=== PATIENT | female | born 1965 | race Caucasian/White ===

== ENCOUNTER 2017-08-27 13:37 | Emergency (ER) | payer OTHER ==
[~2017-08-27] VITALS: Ht 177.8 cm; Wt 156.5 kg
[~2017-08-27 13:37] MED LIST: A STATIN PO; ACCU-CHEK1 EAC1 MISC; ALDACTONE25 MG PO; ALLOPURINOL100 MG PO; ASPIRIN325 MG PO; B-12500 MCG PO; BACTRIM DS TAB1 EACH PO; CALCI-CHEW500 MG PO; CIPROFLOXA400 MG/40 IV; CIPROFLOXACIN500 MG PO; CLINDAMYCIN HC150 MG PO; COLCRYS0.6 MG PO; DAPTOMYCIN500 MG IV; DOCUSATE SODIU100 MG PO; DRISDOL50000 UNIT PO; DULCOLAX5 MG PO; EPIPEN 2-P0.3 MG/0.3 IM; FERRLECIT62.5 MG/1 IV; FERROUS SULFAT325 MG PO; GLIPIZIDE XL10 MG PO; GLUCOSE TEST S1 EACH MISC; IRON IV; LIPITOR10 MG PO; MEROPENEM1 GM IV; METFORMIN HCL500 MG PO; MULTI VITAMIN1 EACH PO; MULTIVITAMINS1 EAC7 PO; NEURONTIN100 MG PO; NORCO 5-325 TA1 EACH PO; PHENTERMINE HCL30 MG PO; PRENATAL 19 CH1 EAC1 PO; REQUIP0.5 MG PO; ROPINIROLE HCL5 MG PO; SENNA8.6 MG PO; SPIRONOLACTONE50 MG; SUMATRIPTAN SU100 MG PO; SYNTHROID125 MCG PO; TYLENOL WITH C1 EACH PO; VITAMIN C500 M1 PO; VITAMIN D250000 UNIT PO; VITAMIN D32000 UNI1 PO; ZOLOFT50 MG PO; [UNRECOGNIZED DRUG - OTHER]
[2017-08-27] MEDS ORDERED: DOXYCYCLINE HY100 MG PO (14:41)
== END 2017-08-27 15:00 | disposition home or self-care (01) ==
LOC: ED 13:37
DX: T80.212A Local infection due to central venous catheter, initial encounter (principal); I10 Essential (primary) hypertension; E03.9 Hypothyroidism, unspecified; Z86.73 Personal history of transient ischemic attack (TIA), and cerebral infarction without residual deficits; Z86.14 Personal history of Methicillin resistant Staphylococcus aureus infection; Z90.710 Acquired absence of both cervix and uterus; Z91.040 Latex allergy status; Z88.0 Allergy status to penicillin; Z88.8 Allergy status to other drugs, medicaments and biological substances; Z88.5 Allergy status to narcotic agent; Z88.1 Allergy status to other antibiotic agents; Z79.82 Long term (current) use of aspirin; Z79.899 Other long term (current) drug therapy
CPT/HCPCS: 99283

== ENCOUNTER 2020-12-06 13:56 | Emergency (ER) | payer BC ==
[~2020-12-06] VITALS: Ht 177.8 cm; Wt 158.0 kg
[~2020-12-06 13:56] MED LIST changes: +DOXYCYCLINE HY100 MG PO
--- OUTSIDE RECORDS SUMMARY | 2020-12-06 14:00 | XMS ---
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 Mikala has no Care Guidelines for this patient. Timothy VISIT COUNT (12 MO.) 1 THOMAS Bazan TOTAL 1 NOTE: Visits indicate total known visits. ED/UCC VISIT TRACKING (12 MO.) 12/06/2020 13:57 THOMAS Singh [place] TYPE: Emergency COMPLAINT: - POSSIBLE ALLERGIC REACTION INPATIENT VISIT TRACKING (12 MO.) No inpatient visits to display in this time frame [email or web address]
[2020-12-06] MEDS ORDERED: METOPROLOL SUCC50 MG PO (14:18)
[2020-12-06] MEDS ORDERED: CYCLOBENZAPRINE10 MG PO (14:20)
[2020-12-06] MEDS ORDERED: LIDOCAINE1 EACH TD (14:20)
--- NOTE | 2020-12-06 17:38 | EKG ---
[facility] [address] [facility] [place] [address] Signed Normal sinus rhythm Normal ECG When compared with ECG of 14-JAN-2017 07:21, Nonspecific T wave abnormality no longer evident in Anterior leads Confirmed by AMINATA ALMAGUER MD ([id number]) on 12/06/2020 5:38:24 PM Electronically Signed By: AMINATA ALMAGUER MD 12/06/20 1738 PATIENT NAME: ORIANA COLORADO Electrocardiogram DATE OF : 61 PHYSICIAN: AMINATA ALMAGUER MD REPORT #: [id number] REPORT IS CONFIDENTIAL AND NOT TO BE RELEASED WITHOUT AUTHORIZATION
== END 2020-12-06 19:20 | disposition home or self-care (01) ==
LOC: ED 13:56
DX: T80.62XA Other serum reaction due to vaccination, initial encounter (principal); R00.2 Palpitations; T50.Z95A Adverse effect of other vaccines and biological substances, initial encounter; I10 Essential (primary) hypertension; E03.9 Hypothyroidism, unspecified; Z86.73 Personal history of transient ischemic attack (TIA), and cerebral infarction without residual deficits; D64.9 Anemia, unspecified; E11.9 Type 2 diabetes mellitus without complications; Z91.040 Latex allergy status; Z91.048 Other nonmedicinal substance allergy status; Z88.0 Allergy status to penicillin; Z88.1 Allergy status to other antibiotic agents; Z88.5 Allergy status to narcotic agent; Z88.2 Allergy status to sulfonamides; Z79.899 Other long term (current) drug therapy
CPT/HCPCS: 0297T; 0298T; 80048; 83735; 84484; 85025; 93005; 93010; 96374; 96375; 99285-25; J1100; J1200; J7030

== ENCOUNTER 2021-04-18 08:00 | Day surgery (SDC) | payer BC ==
[~2021-04-18] VITALS: Ht 177.8 cm; Wt 158.0 kg
[~2021-04-18 08:00] MED LIST changes: +CYCLOBENZAPRINE10 MG PO; +LIDOCAINE1 EACH TD; +METOPROLOL SUCC50 MG PO
--- NOTE | 2021-04-18 08:40 | NUR ---
PATIENT REPORTS BEING ALLERGIC TO SURGICAL WIPES AND WAS INSTRUCTED DURING PRE-ADMISSION TO SHOWER THOROUGHLY AND GET DRESSED IMMEDIATELY AFTER INSTEAD. PATIENT ALLOWED TO SKIP WIPES DUE TO ALLERGY.
--- NOTE | 2021-04-18 12:15 | NUR ---
04/18/21 1215 Prema Ledesma 1206: PT ARRIVES TO PACU FOR RECOVERY. REACTIVE TO VERBAL STIMULI. VSS, RESP EVEN AND UNLABORED. O2 SAT STABLE >98% ON 6L VIA FACEMASK. PT RESTLESS IN BED. BED LOWERED TO LOWEST POSITION. THIS RN AT THE BEDSIDE. DRESSINGS C/D/I. 1214: PT PULLING AT FACEMASK, REMOVED AND OXYGEN TURNED OFF. TRIALLED ON ROOM AIR. SATS REMAIN >95% AT THIS TIME
[2021-04-18] MEDS ORDERED: IBUPROFEN600 MG PO (12:36)
[2021-04-18] MEDS ORDERED: ACETAMINOPHEN500 MG PO (12:36)
--- NOTE | 2021-04-18 13:16 | NUR ---
PATIENT RETURNED TO DAY SURGERY FROM PACU SITTING UPRIGHT IN THE BED. REPORT RECIEVED FROM FEDERICO OTERO. PATIENT REQUESTS DESIRE TO HAVE BED RAILS DOWN AND PROMISES NOT TO GET UP ALONE. KEEPING BED RAILS UP WHILE PATIENT ORIENTS TO UNIT AND BECOMES MORE CLEAR. PATIENT REPORTS PAIN 6/10, IS LAUGHING AND TALIKING ABOUT TELEVISION SHOW. WILL CONTINUE TO MONITOR. AGREES TO HAVING ICE WATER AND APPLESAUCE. DENIES NAUSEA AT THIS TIME. CALL LIGHT WITHIN REACH.
--- NOTE | 2021-04-18 14:12 | NUR ---
CONTACTED EARLINE FROM CANCER CLINIC TO PROVIDE PATIENT WITH [facility] FOR BREAST SUPPORT. PATIENT VERBALIZED DOES NOT HAVE A GOOD SPORTS BRA THAT IS COMFORTABLE TO WEAR AT HOME. EARLINE AGREED TO FIT PATIENT FOR ONE. PATIENT PAIN VERBALIZED SHARP AND RADIATING TO INNER MEDIAL LEFT BREAST. ADMINISTERED TYLENOL PO PER MAR. THEN CONTACTED DR. NIEVES FOR A STRONGER PAIN MEDICATION. DR. NIEVES TO PATIENT ROOM WITH A SCRIPT OF DILAUDID PO. PATIENT VERBALIZED WOULD NOT BE ALLERGIC IF SHE USED IT IN THE SHORT TERM.
--- NOTE | 2021-04-18 15:39 | NUR ---
DISCUSSED DISCAHRGE INSTRUCTIONS WITH PATIENT, PATIENT, , AND DAUGHTER ALL VERBALIZED UNDERSTANDING. PATIENT UP TO RESTROOM AND VOIDS WITHOUT DIFFICULTY. IV REMOVED AND WITHIN NORMAL LIMITS. PATIENT TAKEN OUT TO THE FRONT ENTRANCE IN A WHEELCHAIR. REPORTS PAIN 5-6/10 BUT REPORTS THAT BEING A TOLERABLE LEVEL FOR HER AT THIS TIME. PRESCRIPTIONS GIVEN WITH DISCHARGE INSTRUCTIONS. PATIENT DENIED NAUSEA OTHER THAN WHEN PAINFUL, DENIED INTERVENTIONS FOR NAUSEA. PATIENT SENT HOME WITH ICE PACK AND EMESIS BAGS.
--- NOTE | 2021-04-20 10:51 | OR ---
[facility] [address] [place], [place] [address] Signed DATE OF OPERATION: 04/18/2021 SURGEON: Bob Nieves MD PREOPERATIVE DIAGNOSES: 1. Left infiltrating ductal breast carcinoma (central superior breast). 2. Morbid obesity. POSTOPERATIVE DIAGNOSES: 1. Left infiltrating ductal breast carcinoma (central superior breast). 2. Morbid obesity. 3. Negative sentinel lymph node biopsy frozen pathology. PROCEDURES: 1. Injection of methylene blue for sentinel lymph node identification. 2. Left deep axillary sentinel lymph node biopsy (negative). 3. Left partial mastectomy. 4. Oncoplastic closure of breast parenchyma. ANESTHESIA: General LMA; Ilana Castle CRNA. INDICATION: This is a quite morbidly obese white woman at 352 pounds is a patient of Dr. Warner and has been diagnosed with infiltrating ductal breast carcinoma in the superior aspect of the breast in the central area. Diagnostic mammogram and ultimately ultrasound and ultrasound biopsy by Dr. Pérez confirmed this. The lesion is at least 18 mm in size without associated in situ component. She has had no nipple discharge or bone pain. Does have a slightly inverted nipple in the area. She does have family history of breast cancer in her mother and maternal grandmother and 2 maternal great aunts. Her options of management have been reviewed and at this point, she wishes to proceed with partial mastectomy, sentinel lymph node biopsy, possible axillary dissection and postoperative radiation therapy. She understands as does her the risk of bleeding, infection, cosmetic deformity, need for open procedures later, and of course failure to cure the problem despite efforts to do so. She understands and she wished to proceed. FINDINGS: A sentinel lymph node was well identified in the axilla, which was both hot from the radionuclide standpoint and with uptake of methylene blue dye. Frozen pathology showed Electronically Signed By: BOB NIEVES MD 04/20/21 1051 PATIENT NAME: ORIANA COLORADO OPERATIVE REPORT DATE OF : 61 REPORT #: [id number] PHYSICIAN: BOB NIEVES MD PCP: SAGE WARNER MD REPORT IS CONFIDENTIAL AND NOT TO BE RELEASED WITHOUT AUTHORIZATION [facility] [address] [place], [place] [address] Signed the lesion to be free of any metastatic breast cancer. As regards to breast parenchyma, the lesion was bulky or at least reaction to the tumor itself was significant, requiring a rather generous excision, probably the size of a softball at least. The specimen was marked with a short stitch superiorly, long stitch laterally, a double stitch in the inferior margin, and a triple stitch at the base of the parenchyma near the pectoralis fascia. Clinically, negative margin was maintained. The parenchyma of the breast was voluminous, which allowed for oncoplastic closure to include mobilization of the pedicle of breast. Excision of redundant skin was required for an oncoplastic closure as well. She tolerated procedure well and blood loss was less than 20 mL in aggregate. DESCRIPTION OF PROCEDURE: The patient was received from Radiology suite having undergone radionuclide injection for sentinel lymph node identification. She was given a general LMA type anesthetic without complication. Preoperative antibiotic clindamycin had been given. The patient has an extensive allergy profile including essentially all prep solutions. 2-1/2 mL of methylene blue was injected in the subepithelial and subdermal space in the left periareolar area and the breast was prepared with a Betadine solution as was the axilla. Interrogation of the left axilla with the C-Trak probe showed area considered "hot" with a small transverse incision was made there. Electrocautery was used to dissect into the deep axillary fat and with various manipulations, a blue lymph node with the radionuclide uptake was easily identified. It was relatively larger about 1.5 to 2 cm. This was excised without problem. Several clips were applied to the area for future reference as needed. This was sent for frozen pathology. Additional interrogation of the axilla showed no dominant uptake of radionuclide and so the wound was packed with gauze. Attention was turned to the primary tumor. The primary tumor was cephalad to the areolar margin and in the central part of the breast. She has a very large pendulous breast and palpation revealed the area in question to be a bit more bulky than I had anticipated. Nevertheless, a curvilinear incision was made along the areolar margin. Dissection carried through the dermis with electrocautery. Dissection was begun inferiorly showing no sign of tumor infiltration into the nipple areolar complex proper, though she did have a mildly inverted nipple at the outset of the procedure. Dissection was taken deeply and then laterally and medially and ultimately, the flap developed superiorly allowing for very large excision of breast to include the bulky tumor with a clinically negative margin. The breast parenchyma was marked with appropriate sutures as previously noted and drilling made to help orient the specimen in relation to those orienting sutures. This was sent for permanent pathology. Electronically Signed By: BOB NIEVES MD 04/20/21 1051 PATIENT NAME: ORIANA COLORADO OPERATIVE REPORT DATE OF : 61 REPORT #: [id number] PHYSICIAN: BOB NIEVES MD PCP: SAGE WARNER MD REPORT IS CONFIDENTIAL AND NOT TO BE RELEASED WITHOUT AUTHORIZATION [facility] [address] [place], [place] [address] Signed By this point, the frozen pathology of the sentinel lymph node was found to be negative for any sign of metastatic disease. Irrigation was undertaken in the wound with sterile water. Electrocautery was assured with hemostasis. A sizable defect was noted down to the pectoralis fascia. Given her redundant breast tissue from morbid obesity, parenchymal reapproximation and mobilization of breast pedicles was deemed appropriate to fill the void of the excised tissue. This was accomplished by mobilizing the superior and inferior pedicle and joining them at the base of the wound with interrupted 2-0 Vicryl, parenchymal reapproximation was then undertaken sequentially throughout. As expected, a transverse crease was created with this approach allowing for appropriate excision of additional skin superiorly to accommodate the nipple. Reapproximation of the dermis with interrupted 2-0 Vicryl was undertaken and dog-ears laterally were excised flattening out the incision itself. Very good filling of the breast defect was noted, though there was some distortion remaining, but given her morbid obesity, likely would not be particularly problematic going forward. Steri-Strips were applied to this site as was a silver sponge dressing. Attention was turned towards the axilla. There was no evidence of bleeding or other issue. The skin was reapproximated with interrupted 3-0 Vicryl. Steri-Strips were applied and a silver sponge dressing applied there as well. The patient tolerated procedure well. Blood loss was less than 25 mL in aggregate. Sponge, needle, and instrument counts were reported as correct x3. MD SHANE Ruelas/BERLIN /[id number] cc: MD Issa Chavira MD Copies: SAGE WARNER MD Electronically Signed By: BOB NIEVES MD 04/20/21 1051 PATIENT NAME: ORIANA COLORADO OPERATIVE REPORT DATE OF : 61 REPORT #: [id number] PHYSICIAN: BOB NIEVES MD PCP: SAGE WARNER MD REPORT IS CONFIDENTIAL AND NOT TO BE RELEASED WITHOUT AUTHORIZATION [facility] [address] [place] [address] Signed ISSA PÉREZ MD ~ Electronically Signed By: BOB NIEVES MD 04/20/21 1051 PATIENT NAME: ORIANA COLORADO OPERATIVE REPORT DATE OF : 61 REPORT #: [id number] PHYSICIAN: BOB NIEVES MD PCP: SAGE WARNER MD REPORT IS CONFIDENTIAL AND NOT TO BE RELEASED WITHOUT AUTHORIZATION
--- NOTE | 2021-06-07 17:40 | PATH ---
[facility] [address] [facility] [place], [place] [address] Signed THIS IS AN ADDENDUM REPORT SPECIMEN(S): A SENTINEL LYMPH NODE SPECIMEN(S): B CENTRAL LEFT BREAST SPECIMEN(S): C SUPERIOR SKIN FLAP SPECIMEN SOURCE: A. SENTINEL LYMPH NODE B. CENTRAL LEFT BREAST C. SUPERIOR SKIN FLAP CLINICAL HISTORY: Infiltrating ductal carcinoma of left breast FROZEN SECTION DIAGNOSIS: A. [place] lymph node: - No evidence of malignancy in ict sales representative section frozen of lymph node #1. - Lymph node #2 not frozen. Manisha Suero M.D. 04/18/21 11:05 a.m. Frozen section diagnoses called to Dr. Key at 11:05 AM. NAL:cml FINAL PATHOLOGIC DIAGNOSIS: A. [place] lymph node, left axilla, excisional biopsy: - Metastatic ductal carcinoma present in one of two lymph nodes (1/2). - Size of metastatic deposit: 18 mm. - Extranodal extension: Present, 3 mm in greatest dimension. B. Breast, left central, lumpectomy: - Invasive ductal carcinoma, with the following features: - Tumor site: Central. - Tumor size: 26 x 23 x21 mm. - Histologic type: Invasive carcinoma of no special type (ductal). - Histologic grade (Union histologic score): - Glandular (acinar)/tubular differentiation: Score 3. - Nuclear pleomorphism: Score 2. - Mitotic rate: Score 1. - Overall grade: Grade 2 (total score 6 of 9). - Tumor focality: Single focus of invasive carcinoma. - Ductal carcinoma in situ: Not identified. - Margins: Uninvolved by invasive carcinoma (see Comment). - Deep margin: 2 mm. PATIENT NAME: ORIANA COLORADO PATHOLOGY DATE OF : 61 REPORT #: [id number] PHYSICIAN: TING PATHOLOGY PCP: SAGE HILARIO MD REPORT IS CONFIDENTIAL AND NOT TO BE RELEASED WITHOUT AUTHORIZATION [facility] [address] [place], [place] [address] Signed - Anterior and inferior margins: 6 mm. - Superior, medial, lateral margins: Greater than 10 mm. - Regional lymph nodes: Involved by tumor cells (see specimen A). - Number of lymph nodes with macrometastases: 1. - Size of largest metastatic deposit: 18 mm. - Extranodal extension: Present. - Extent of extranodal extension: 3 mm. - Total number of lymph nodes examined: 2. - Number of sentinel nodes examined: 1. - Total number of nodes examined: 2. - Treatment effect in the breast: No known pre-surgical therapy. - Lymphovascular invasion: Present. - Breast biomarker studies: Please refer to previously performed testing ([id number]), interpreted as estrogen receptor positive, progesterone receptor positive, HER2 negative by IHC (1+), and Ki-67 proliferation index of 28%. - Pathologic stage classification (pTNM, AJCC 8th edition): pT2 (sn) pN1a. - See Comment. C. Superior skin flap, excision: - Skin with no histopathologic abnormality. - No evidence of malignancy. COMMENT: Regarding specimen B: Through invasive carcinoma is not present at the deep margin, carcinoma is present in lymphovascular spaces at the deep margin. This is confirmed with immunohistochemical stains (see microscopic section). As part of [facility]' Quality Improvement Program, this case was reviewed by another member of our pathology staff. The results were called to the office of Dr. Key on 04/23/21. NAL:LEONEL:cml:C1NR MICROSCOPIC EXAMINATION: Histologic sections of all submitted blocks are examined by light microscopy. These findings, together with the gross examination, support the pathologic diagnosis. Regarding specimen A: Immunohistochemical stains (with appropriately staining controls) for graham cytokeratin were performed on each ict sales representative section of the sentinel lymph nodes and confirm the PATIENT NAME: ORIANA COLORADO PATHOLOGY DATE OF : 61 REPORT #: [id number] PHYSICIAN: [employer] PATHOLOGY PCP: SAGE HILARIO MD REPORT IS CONFIDENTIAL AND NOT TO BE RELEASED WITHOUT AUTHORIZATION [address] [address] Signed presence of metastatic ductal carcinoma. Regarding specimen B: Focally, carcinoma is present within structures suspicious for lymphovascular spaces at the deep surgical margin. Immunohistochemical stains (with appropriately staining controls) were performed to further evaluate this area. The spaces in which the carcinoma is present are positive for CD31 and negative for SMMHC and p63, confirming endothelial origin. The closest stromal invasive carcinoma is 2.0 mm from the deep margin. GROSS DESCRIPTION: Three specimens are received in three containers, labeled "JF." A. The specimen, labeled "JF, A," and designated on the requisition "sentinel lymph node," is received fresh for frozen section diagnosis and consists of a 3.0 x 2.5 x 1.0 cm piece of adipose tissue. Two lymph node candidates are identified amongst the adipose tissue. The first lymph node candidate has no dye and is 3.0 x 1.3 x 1.0 cm. The second lymph node candidate has no dye and is 1.5 x 1.0 x 0.5 cm. The lymph nodes are serially sectioned to show torrez-pink soft tissue with no gross metastasis. Sales Marketing Coordinator sections of the lymph node candidates are submitted for frozen section the as follows: FS1 = lymph node candidate one FS2 = lymph node candidate two The remaining tissue from the lymph node candidates are submitted entirely as follows: A1 remainder of frozen section 1 A2 remainder of frozen section 2 A3 remainder of first lymph node candidate A4 remainder of second lymph node candidate B. The specimen, labeled "JS, B," and designated on the requisition "central left breast cancer, short stitch superior, long lateral, triple stitch deep, double stitch inferior," is received in formalin and consists of 222 g, somewhat ragged, 11.2 x 9.3 x 4.7 cm lumpectomy specimen that is oriented with a double short suture indicating superior, a double-double short suture indicating inferior, a triple-double short suture indicating deep, and a long single suture indicating lateral. On the anterior surfaces of the specimen is an area of previous blue dye that is 2.7 x 1.5 cm. The specimen is inked as follows: Superior = blue; inferior = green; anterior = yellow; posterior = black; medial = red; and lateral = orange. The specimen is sectioned from medial to lateral into PATIENT NAME: ORIANA COLORADO PATHOLOGY DATE OF : 61 REPORT #: [id number] PHYSICIAN: TING PATHOLOGY PCP: SAGE HILARIO MD REPORT IS CONFIDENTIAL AND NOT TO BE RELEASED WITHOUT AUTHORIZATION [facility] [address] [place], [place] [address] Signed nine slices to reveal an ill-defined, torrez-white, stellate, 2.6 x 2.3 x 2.1 cm, indurated lesion (slice 4-7) with multiple fibrous spiculations. The lesion is 0.5 cm from the anterior margin, 0.7 cm from the inferior margin, 1.8 cm from the deep margin, 2.1 cm from area of previous blue dye, 2.5 cm from the lateral margin, 2.8 cm from the medial margin, and 3.1 cm from the superior margin. The remaining parenchyma is comprised of yellow fibrofatty and torrez-white fibroglandular tissue. The fibroglandular tissue is slightly granular but without a discrete mass is lesion. In the additional specimen, a mass/lesion is not grossly identified. Fibroglandular tissue comprises approximately 5% of the remaining parenchyma. A clip is not grossly identified. Sales Marketing Coordinator sections are submitted as follows: B1-B2 lesion to anterior and inferior margin (slice 6) B3-B4 lesion (slice 6) B5 lesion to deep margin (slice 6; B1, B3 and B5 along with B2, B4 and B5 are full cross sections of the lesion) B6 nearest lateral margin to lesion (slice 7) B7 nearest area of previous blue dye to lesion (slice 7) B8 nearest superior margin to lesion (slice 5) B9 nearest medial margin to lesion (slice 3) B10 remaining parenchyma (slice 2) Cold ischemic time: 57 minutes per requisition form Formalin fixation time: Approximately 21 hours C. The specimen, labeled "JF, C," and designated on the requisition "superior skin flap," is received in formalin and consists of three pieces of unoriented, ellipsoid, previously blue dyed, undesignated, torrez, wrinkled, grossly unremarkable skin segments. The first is 2.9 x 1.2 cm, excised to depth of 0.9 cm, and the resection margin is inked red. The second is 5.1 x 1.6 x 0.4 cm and the resection margin is inked orange. The third piece is 5.5 x 2.5 x 0.5 cm and the resection margin is inked blue. The three pieces are cross-sectioned to reveal torrez-white, grossly unremarkable subcutaneous tissue and a scant amount of attached grossly unremarkable, fibrofatty breast tissue. A discrete mass/lesion is not grossly identified. Sales Marketing Coordinator sections are submitted in 4 cassettes (C1-C4). AI (under the direct supervision of a pathologist) The Gross Description was prepared using a voice recognition system. The report PATIENT NAME: ORIANA COLORADO PATHOLOGY DATE OF : 61 REPORT #: [id number] PHYSICIAN: TING GRAHAM PCP: SAGE HILARIO MD REPORT IS CONFIDENTIAL AND NOT TO BE RELEASED WITHOUT AUTHORIZATION [address] [address] Signed was reviewed for accuracy; however, sound-alike word errors, addition and/or deletions may occur. If there is any question about this report, please contact Client Services. ADDITIONAL NOTES: Immunohistochemical and/or in situ hybridization studies were performed on this case with the appropriate positive controls that react as expected. This test was developed and its performance characteristics determined by [facility]. It has not been cleared or approved by the U.S. Food and Drug Administration. The FDA has determined that such clearance or approval is not necessary. This test is used for clinical purposes. It should not be regarded as investigational or for research. [facility] is certified under the Clinical Laboratory Improvement Amendments of 1988 (CLIA) as qualified to perform high complexity clinical laboratory testing. This assay has not been validated for specimens that have been decalcified. PERFORMING LABORATORY: Frozen section performed at [facility], [address] [place], [place] [address] (CLIA# [id number]). The technical component was performed by [facility], [address] [place] [id number] (Telephone Maintenance Mechanic: Juani Malhotra MD; CLIA# [id number]) Professional interpretation was performed by [facility], [address] [address] (CLIA# [id number]). . REASON FOR ADDENDUM: To document review of material for external testing. ADDENDUM COMMENT: At the request of Dr. Newberry, archived slides and blocks for case [id number] are retrieved on [place] [place] and are reviewed by a pathologist to assess adequacy for Oncotype DX for breast testing. Block A1 is sent to [facility]. NA:slc Professional interpretation was performed by [facility], [facility], [address] [place] [address] (CLIA#: [id number]) PATIENT NAME: ORIANA COLORADO PATHOLOGY DATE OF : 61 REPORT #: [id number] PHYSICIAN: TING PATHOLOGY PCP: SAGE HILARIO MD REPORT IS CONFIDENTIAL AND NOT TO BE RELEASED WITHOUT AUTHORIZATION [facility] [address] [facility] [place] [place] [address] Signed REASON FOR ADDENDUM: To document review of material for external testing. ADDENDUM COMMENT: At the request of Dr. Newberry, archived slides and blocks for case [id number] are retrieved on [facility] [place] and are reviewed by a pathologist to assess adequacy for Oncotype DX for breast testing. Block B2 is sent to [facility]. NA:slc Professional interpretation was performed by [facility], [facility], [address] [place] [address] (CLIA#: [id number]) REASON FOR ADDENDUM: To add results of additional testing performed on block B2. ADDENDUM PATHOLOGIC DIAGNOSIS: B. Breast, left central, lumpectomy: - Oncotype DX breast cancer recurrence score: 20 - Distance recurrence risk at 9 years: 17% - Absolute chemotherapy benefit: CT benefit for this group cannot be excluded - Quantitative ER score: Positive (9.4) - Quantitative [place] score: Positive (6.5) - Quantitative HER-2 score: Negative (9.1) The technical and professional components of the Oncotype DX testing were performed at [facility] ([place], [place], case # [id number]). Detailed report is kept on file. Diagnostician: Jailene Kaur MD, FACP Pathologist Diagnostician: Manisha Suero MD Pathologist Electronically Signed 06/07/2021 Copies: ~ PATIENT NAME: ORIANA COLORADO PATHOLOGY DATE OF : 61 REPORT #: [id number] PHYSICIAN: TING PATHOLOGY PCP: SAGE HILARIO MD REPORT IS CONFIDENTIAL AND NOT TO BE RELEASED WITHOUT AUTHORIZATION
== END 2021-04-18 15:30 | disposition home or self-care (01) ==
LOC: OPS 08:00 → DS 08:00 → EDSTATUS 08:15 → OPS 08:15 → NUC 09:00 → OPS 09:00
PROVIDERS: ATTEND Surgery
PROC: 0HBU0ZZ Excision of Left Breast, Open Approach (ICD-10-PCS; principal; 2021-04-18 11:00)
PROC: 07B60ZX Excision of Left Axillary Lymphatic, Open Approach, Diagnostic (ICD-10-PCS; 2021-04-18 11:00)
DX: C50.112 Malignant neoplasm of central portion of left female breast (principal); C77.3 Secondary and unspecified malignant neoplasm of axilla and upper limb lymph nodes; Z17.0 Estrogen receptor positive status [ER+]; I10 Essential (primary) hypertension; E11.9 Type 2 diabetes mellitus without complications; E03.9 Hypothyroidism, unspecified; M10.9 Gout, unspecified; E66.01 Morbid (severe) obesity due to excess calories; Z68.43 Body mass index [BMI] 50.0-59.9, adult; Z80.3 Family history of malignant neoplasm of breast; Z90.49 Acquired absence of other specified parts of digestive tract; Z88.1 Allergy status to other antibiotic agents; Z91.030 Bee allergy status; Z91.040 Latex allergy status; Z91.018 Allergy to other foods; Z91.010 Allergy to peanuts; Z88.7 Allergy status to serum and vaccine; Z88.8 Allergy status to other drugs, medicaments and biological substances; Z91.048 Other nonmedicinal substance allergy status
CPT/HCPCS: 00404; 78195; A9541; J0131; J0330; J1100; J1200; J1644; J1885; J2001; J2250; J2405; J2704; J3010; J7121; Q9968

== ENCOUNTER 2022-05-03 13:53 | Emergency (ER) | payer BC ==
[~2022-05-03] VITALS: Ht 177.8 cm; Wt 154.2 kg
[~2022-05-03 13:53] MED LIST changes: +ACETAMINOPHEN500 MG PO; +IBUPROFEN600 MG PO
--- OUTSIDE RECORDS SUMMARY | 2022-05-03 13:56 | XMS ---
PreManage Notification: [place] Security [employer] Events No recent Security Events currently on file CRITERIA MET - [place] CARE PROVIDERS [facility] Current PHONE: Unknown Mikala has no Care Guidelines for this patient. EV[facility] (12 MO.) [facility] TOTAL 2 NOTE: Visits indicate total known visits. ED/UCC VISIT TRACKING (12 MO.) 05/03/2022 13:53 [facility] [place] TYPE: Emergency COMPLAINT: - CHEST PAIN 05/14/2021 18:23 [facility] JONES James TYPE: Emergency DIAGNOSES: - Post-op Problem - Other specified disorders of breast - Other specified postprocedural states INPATIENT VISIT TRACKING (12 MO.) No inpatient visits to display in this time frame [email or web address]
[2022-05-03] MEDS ORDERED: LISINOPRIL20 MG PO (14:11)
[2022-05-03] MEDS ORDERED: METFORMIN HCL1000 M1 PO (14:12)
[2022-05-03] MEDS ORDERED: CILOSTAZOL50 MG PO (14:12)
[2022-05-03] MEDS ORDERED: HYDROCODON-ACE1 EA10 PO (19:55)
--- NOTE | 2022-05-06 19:04 | EKG ---
[facility] [address] [facility] [place], [place] [address] Signed Normal sinus rhythm Normal ECG When compared with ECG of 06-DEC-2020 16:42, No significant change was found Confirmed by AMINATA ALMAGUER MD ([id number]) on 05/06/2022 7:04:44 PM Electronically Signed By: AMINATA ALMAGUER MD 05/06/22 1904 PATIENT NAME: STANISLAVORIANA Electrocardiogram DATE OF : 61 PHYSICIAN: AMINATA ALMAGUER MD REPORT #: [id number] REPORT IS CONFIDENTIAL AND NOT TO BE RELEASED WITHOUT AUTHORIZATION
== END 2022-05-03 20:07 | disposition home or self-care (01) ==
LOC: ED 13:53
DX: R07.2 Precordial pain (principal); R51.9 Headache, unspecified; I10 Essential (primary) hypertension; E03.9 Hypothyroidism, unspecified; D64.9 Anemia, unspecified; E11.9 Type 2 diabetes mellitus without complications; Z88.8 Allergy status to other drugs, medicaments and biological substances; Z91.048 Other nonmedicinal substance allergy status; Z91.040 Latex allergy status; Z91.010 Allergy to peanuts; Z91.013 Allergy to seafood; Z88.5 Allergy status to narcotic agent; Z88.2 Allergy status to sulfonamides; Z79.899 Other long term (current) drug therapy; Z79.84 Long term (current) use of oral hypoglycemic drugs
CPT/HCPCS: 36415; 71045; 80053; 83690; 84484; 85025; 93005; 93010; 96374; 96375; 99285-25; A9270; J1170; J1885; J2405

== ENCOUNTER 2022-05-08 08:50 | Emergency (ER) | payer BC ==
[~2022-05-08] VITALS: Ht 177.8 cm; Wt 154.3 kg
[~2022-05-08 08:50] MED LIST changes: +CILOSTAZOL50 MG PO; +HYDROCODON-ACE1 EA10 PO; +LISINOPRIL20 MG PO; +METFORMIN HCL1000 M1 PO
--- OUTSIDE RECORDS SUMMARY | 2022-05-08 08:52 | XMS ---
PreManage Notification: [place] Security [employer] Events No recent Security Events currently on file CRITERIA MET - [facility] - 2 Visits in 30 Days CARE PROVIDERS [facility] Current PHONE: Unknown Mikala has no Care Guidelines for this patient. E.[place]pe VISIT COUNT (12 MO.) 1 [place] [facility] [address] [place] [address] TOTAL 3 NOTE: Visits indicate total known visits. 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 TYPE: Emergency DIAGNOSES: - Post-op Problem - Other specified disorders of breast - Other specified postprocedural states INPATIENT VISIT TRACKING (12 MO.) No inpatient visits to display in this time frame [email or web address]
[2022-05-08] MEDS ORDERED: CEPHALEXIN500 M1 PO (15:29)
== END 2022-05-08 15:38 | disposition home or self-care (01) ==
LOC: ED 08:50
DX: N17.9 Acute kidney failure, unspecified (principal); N39.0 Urinary tract infection, site not specified; I10 Essential (primary) hypertension; E03.9 Hypothyroidism, unspecified; Z86.73 Personal history of transient ischemic attack (TIA), and cerebral infarction without residual deficits; D64.9 Anemia, unspecified; E11.9 Type 2 diabetes mellitus without complications; Z91.048 Other nonmedicinal substance allergy status; Z91.010 Allergy to peanuts; Z91.013 Allergy to seafood; Z91.040 Latex allergy status; Z88.1 Allergy status to other antibiotic agents; Z88.5 Allergy status to narcotic agent; Z88.8 Allergy status to other drugs, medicaments and biological substances; Z79.899 Other long term (current) drug therapy; Z79.84 Long term (current) use of oral hypoglycemic drugs
CPT/HCPCS: 36415; 80048; 81001; 85025; 87088; 96361; 96365; 99284-25; J0696; J7030

== ENCOUNTER 2023-12-07 17:54 | Emergency (ER) | payer OTHER ==
[~2023-12-07] VITALS: Ht 177.8 cm; Wt 119.8 kg
[~2023-12-07 17:54] MED LIST changes: +CEPHALEXIN500 M1 PO
[2023-12-07 18:22] LABS: BASOPHILS 0.8 % (0-2); BILIRUBIN, URINE NEGATIVE (negative); BLOOD/HGB, URINE LARGE (Negative); EOSINOPHILS 0.7 % (0-6); HEMATOCRIT 44.6 % (35.0-50.0); HEMOGLOBIN 14.6 g/dL (12.0-18.0); KETONE, URINE NEGATIVE (Negative); LEUK ESTERASE, URINE SMALL (negative); LYMPHOCYTES 14.2 % (24-44); MCH 26.1 (27-36); MCHC 32.6 g/dl (30-36); MCV 79.8 fl (81-99); MONOCYTES 6.8 % (0-12); NEUTROPHILS 77.5 % (39-80); NITRITE, URINE NEGATIVE (negative); PH, URINE 5.5 (5-7); PLATELET COUNT 371 K/uL (140-440); RBC 5.59 M/ul (4.3-5.7); RDW 15.8 (10.5-15.0)
[2023-12-07] MEDS ORDERED: OZEMPIC2 MG/0.75 SUB-Q (18:24)
[2023-12-07] MEDS ORDERED: COLCRYS0.6 MG PO (18:24)
[2023-12-07] MEDS ORDERED: LEVOTHYROXINE137 MCG PO (18:26)
[2023-12-07 18:30] LABS: BACTERIA, URINE RARE /hpf (negative); CRYSTALS, URINE NONE SEEN (0-1+); EPITHELIAL CELLS, URINE SQUAMOUS 3+ /lpf (0-1+)
[2023-12-07 18:31] LABS: CASTS, URINE NONE SEEN \\lpf; COLLECTION TYPE, URINE CLEAN CATCH; REFLEX CULTURE, URINE No (No)
[2023-12-07 18:36] LABS: ALBUMIN 3.6 g/dL (3.4-5.0); ALBUMIN/GLOBULIN RATIO 0.78 (1.1-2.4); ANION GAP 17.3 (7-21); BILIRUBIN, TOTAL 0.5 ng/dL (0.2-1.0); BUN/CREATININE RATIO 12.64 (6.0-28.6); CALCIUM 9.4 mg/dL (8.5-10.1); CREATININE, SERUM 0.87 mg/dL (0.55-1.02); POTASSIUM 3.3 mmol/L (3.5-5.1); PROTEIN, TOTAL 8.2 g/dL (6.4-8.2)
[2023-12-07] MEDS ORDERED: TOPIRAMATE25 MG PO (18:45)
[2023-12-07] MEDS ORDERED: NURTEC ODT75 MG PO (18:45)
[2023-12-07] MEDS ORDERED: ANASTROZOLE1 MG PO (18:45)
[2023-12-07] MEDS ORDERED: METOPROLOL SUCC25 MG PO (18:46)
[2023-12-07] MEDS ORDERED: ROSUVASTATIN CA20 MG PO (18:46)
[2023-12-07] MEDS ORDERED: CEFDINIR300 MG PO (20:10)
[2023-12-07] MEDS ORDERED: HYDROCODON-ACE1 EAC8 PO (20:11)
[2023-12-07] MEDS ORDERED: FLOMAX0.4 MG PO (20:11)
[2023-12-07] MEDS ORDERED: ONDANSETRON ODT8 MG PO (20:16)
[2023-12-07 20:58] VITALS: BP 107/86
== END 2023-12-07 20:58 | disposition home or self-care (01) ==
LOC: ED 17:54
PROVIDERS: Emergency Medicine
DX: N20.0 Calculus of kidney (principal); I10 Essential (primary) hypertension; E11.9 Type 2 diabetes mellitus without complications; Z91.09 Other allergy status, other than to drugs and biological substances; Z91.010 Allergy to peanuts; Z91.013 Allergy to seafood; Z88.0 Allergy status to penicillin; Z88.1 Allergy status to other antibiotic agents; Z88.5 Allergy status to narcotic agent; Z79.899 Other long term (current) drug therapy; Z79.890 Hormone replacement therapy
CPT/HCPCS: 36415; 74177; 80053; 81001; 83690; 85025; 96361; 96375; 99284-25; A9270; J0696; J2405; J3010; J7030

== ENCOUNTER 2024-01-13 11:45 | Observation (INO) | payer OTHER ==
[~2024-01-13] VITALS: Ht 177.8 cm; Wt 118.7 kg
[~2024-01-13 11:45] MED LIST changes: +ACETAMINOPHEN-1 EAC1 PO; +ANASTROZOLE1 MG PO; +CEFDINIR300 MG PO; +FLOMAX0.4 MG PO; +HYDROCODON-ACE1 EAC8 PO; +LEVOTHYROXINE137 MCG PO; +METOPROLOL SUCC25 MG PO; +NURTEC ODT75 MG PO; +ONDANSETRON ODT8 MG PO; +OZEMPIC2 MG/0.75 SUB-Q; +ROSUVASTATIN CA20 MG PO; +TOPIRAMATE25 MG PO; -TYLENOL WITH C1 EACH PO
[2024-01-13 12:13] LABS: BASOPHILS 0.8 % (0-2); EOSINOPHILS 2.3 % (0-6); HEMATOCRIT 45.8 % (35.0-50.0); HEMOGLOBIN 15.2 g/dL (12.0-18.0); LYMPHOCYTES 18.1 % (24-44); MCH 26.6 (27-36); MCHC 33.2 g/dl (30-36); MONOCYTES 6.3 % (0-12); NEUTROPHILS 72.5 % (39-80); PLATELET COUNT 298 K/uL (140-440); RBC 5.73 M/ul (4.3-5.7); RDW 16.4 (10.5-15.0)
[2024-01-13] MEDS ORDERED: ACETAMINOPHEN 500 MG TAB PO ONE (12:15)
[2024-01-13] MEDS ORDERED: IBLOOD GLUCOSE TEST STRIP 1 EA TEST XX ONE (12:15)
[2024-01-13 12:23] LABS: INR 1.02 (0.80-1.30)
[2024-01-13 12:25] LABS: PARTIAL THROMBOPLASTIN TIME 28.4 Sec (22.9-41.3)
[2024-01-13 12:30] LABS: ALBUMIN 3.6 g/dL (3.4-5.0); ALBUMIN/GLOBULIN RATIO 0.78 (1.1-2.4); ALKALINE PHOSPHATASE 85 U/L (46-116); ALT (SGPT) 26 U/L (14-59); ANION GAP 17.8 (7-21); AST (SGOT) 29 U/L (15-37); BILIRUBIN, TOTAL 0.6 ng/dL (0.2-1.0); BUN/CREATININE RATIO 10.66 (6.0-28.6); CARBON DIOXIDE 23 mmol/L (21-32); CHLORIDE 104 mmol/L (98-107); CREATININE, SERUM 0.75 mg/dL (0.55-1.02); GLOMERULAR FILTRATION RATE,EST 91 mL/min (>60); POTASSIUM 3.8 mmol/L (3.5-5.1); PROTEIN, TOTAL 8.2 g/dL (6.4-8.2); UREA NITROGEN 8 mg/dL (7-18)
[2024-01-13] MEDS ORDERED: ADULT ASPIRIN R81 MG PO (12:45)
[2024-01-13 13:49] LABS: INFLUENZA B NAA NEGATIVE (NEGATIVE); RESPIRATORY SYNCYTIAL VIR NAA NEGATIVE (NEGATIVE)
[2024-01-13] MEDS ORDERED: ASPIRIN 81 MG CHEW PO ONE (15:30)
[2024-01-13] MEDS ORDERED: CLOPIDOGREL BISULFATE 75 MG TAB PO ONE (15:30)
[2024-01-13] MEDS ORDERED: GLUCAGON,HUMAN RECOMBINANT 1 MG/ML VIAL SUB-Q PRN (15:45)
[2024-01-13] MEDS ORDERED: IBLOOD GLUCOSE TEST STRIP 1 EA TEST XX PRN (15:45)
[2024-01-13] MEDS ORDERED: DEXTROSE 5% 1,000 ML IV PRN (15:45)
[2024-01-13] MEDS ORDERED: PROCHLORPERAZINE EDISYLATE 10 MG/2 ML VIAL IV PRN (15:45)
[2024-01-13] MEDS ORDERED: ACETAMINOPHEN 325 MG TAB PO PRN (15:45)
[2024-01-13] MEDS ORDERED: ondansetron HCL 4 MG/2 ML VIAL IV PRN (15:45)
[2024-01-13] MEDS ORDERED: DEXTROSE 50% 50 ML SYR IV PRN ×2 (15:45)
[2024-01-13 16:22] LABS: AMPHETAMINES, URINE NEGATIVE (NEGATIVE); BARBITURATES, URINE NEGATIVE (NEGATIVE); BENZODIAZEPINE, URINE NEGATIVE (NEGATIVE); CANNABINOID, URINE NEGATIVE (NEGATIVE); COCAINE, URINE NEGATIVE (NEGATIVE); ECSTASY, URINE NEGATIVE (NEGATIVE); FENTANYL, URINE NEGATIVE (NEGATIVE); METHADONE, URINE NEGATIVE (NEGATIVE); OPIATES, URINE NEGATIVE (NEGATIVE); OXYCODONE, URINE NEGATIVE (NEGATIVE); PHENCYCLIDINE, URINE NEGATIVE (NEGATIVE)
[2024-01-13 16:39] LABS: BUPRENORPHINE, URINE NEGATIVE (NEGATIVE)
[2024-01-13 16:44] VITALS: BP 161/96
[2024-01-13] MEDS ORDERED: INSULIN LISPRO 100 UNIT/ML ML SUB-Q SCH (17:00)
[2024-01-13] MEDS ORDERED: IBLOOD GLUCOSE TEST STRIP 1 EA TEST VI SCH ×2 (17:00→20:00)
[2024-01-13] MEDS ORDERED: KETOROLAC TROMETHAMINE 15 MG/ML VIAL IV PRN (17:15)
[2024-01-13 18:34] VITALS: BP 161/96
[2024-01-13 19:37] VITALS: BP 146/95
[2024-01-13] MEDS ORDERED: Insulin Regular, Human 100 UNIT/ML ML SUB-Q SCH (20:00)
[2024-01-13] MEDS ORDERED: LIDOCAINE 2% VISCOUS 6 ML SYR TOP ONE (20:30)
[2024-01-13] MEDS ORDERED: KETOROLAC TROMETHAMINE 15 MG/ML VIAL IV ONE (20:30)
[2024-01-13] MEDS ORDERED: SODIUM CHLORIDE 0.9% 1,000 ML IV SCH (20:30)
--- NOTE | 2024-01-13 22:29 | EKG ---
[facility] [address] [facility] [place] [address] Signed Normal sinus rhythm Nonspecific ST and T wave abnormality Abnormal ECG When compared with ECG of 03-MAY-2022 14:00, T wave inversion now evident in Anterior leads Confirmed by Leighton Carballo MD () on 01/13/2024 10:29:43 PM Electronically Signed By: LEIGHTON CARBALLO MD 01/13/24 2229 PATIENT NAME: STANISLAVORIANA Electrocardiogram DATE OF : 61 PHYSICIAN: LEIGHTON CARBALLO MD REPORT #: [id number] REPORT IS CONFIDENTIAL AND NOT TO BE RELEASED WITHOUT AUTHORIZATION
[2024-01-13 23:32] VITALS: BP 138/93
[2024-01-14 01:00] VITALS: BP 138/93
[2024-01-14 05:50] LABS: BASOPHILS 0.7 % (0-2); EOSINOPHILS 2.9 % (0-6); HEMATOCRIT 41.5 % (35.0-50.0); HEMOGLOBIN 13.5 g/dL (12.0-18.0); LYMPHOCYTES 19.2 % (24-44); MCH 26.4 (27-36); MCHC 32.6 g/dl (30-36); MCV 80.9 fl (81-99); NEUTROPHILS 70.2 % (39-80); PLATELET COUNT 236 K/uL (140-440); RBC 5.13 M/ul (4.3-5.7); RDW 16.2 (10.5-15.0)
[2024-01-14 05:51] VITALS: BP 147/88
[2024-01-14 06:08] LABS: ALBUMIN/GLOBULIN RATIO 0.71 (1.1-2.4); ANION GAP 11.9 (7-21); BILIRUBIN, TOTAL 0.7 ng/dL (0.2-1.0); BUN/CREATININE RATIO 14.28 (6.0-28.6); CALCIUM 9.4 mg/dL (8.5-10.1); CHOLESTEROL/HDL RATIO 4.3; CREATININE, SERUM 0.77 mg/dL (0.55-1.02); PHOSPHORUS, INORGANIC 4.7 mg/dL (2.5-4.9); POTASSIUM 3.9 mmol/L (3.5-5.1); PROTEIN, TOTAL 7.2 g/dL (6.4-8.2)
[2024-01-14] MEDS ORDERED: ASPIRIN 81 MG CHEW PO SCH (08:00)
[2024-01-14] MEDS ORDERED: CYCLOBENZAPRINE10 MG PO (08:13)
[2024-01-14] MEDS ORDERED: CARBAMAZEPINE200 MG PO (08:16)
[2024-01-14] MEDS ORDERED: INFLUENZA VACCINE IM SCH (09:00)
[2024-01-14] MEDS ORDERED: CLOPIDOGREL BISULFATE 75 MG TAB PO SCH (09:00)
[2024-01-14] MEDS ORDERED: MELATONIN3 MG PO (09:12)
[2024-01-14] MEDS ORDERED: SERTRALINE HCL100 MG PO (09:12)
[2024-01-14 10:16] VITALS: BP 147/88
[2024-01-14 10:49] VITALS: BP 139/98
[2024-01-14] MEDS ORDERED: KETOROLAC TROMETHAMINE 15 MG/ML VIAL IV ONE (11:15)
[2024-01-14] MEDS ORDERED: MORPHINE SULFATE 4 MG/ML VIAL IV PRN (11:15)
[2024-01-14] MEDS ORDERED: PHARMACY RENAL DOSE ADJUSTMENT 1 DOSE MISC PO SCH (12:00)
[2024-01-14] MEDS ORDERED: CLOPIDOGREL75 MG PO (13:09)
[2024-01-14 13:28] VITALS: BP 145/90
[2024-01-14] MEDS ORDERED: IBLOOD GLUCOSE TEST STRIP 1 EA TEST VI SCH (17:00)
[2024-01-14] MEDS ORDERED: Insulin Regular, Human 100 UNIT/ML ML SUB-Q SCH (17:00)
== END 2024-01-14 14:20 | disposition home or self-care (01) ==
LOC: ED 11:45 → MS 11:47
PROVIDERS: Emergency Medicine; ADMIT Family Medicine; ATTEND Family Medicine
DX: R53.1 Weakness (principal); R51.9 Headache, unspecified; R33.9 Retention of urine, unspecified; R13.10 Dysphagia, unspecified; E11.9 Type 2 diabetes mellitus without complications; E03.9 Hypothyroidism, unspecified; I10 Essential (primary) hypertension; Z88.0 Allergy status to penicillin; Z88.1 Allergy status to other antibiotic agents; Z88.5 Allergy status to narcotic agent; Z88.8 Allergy status to other drugs, medicaments and biological substances; Z79.82 Long term (current) use of aspirin; Z79.899 Other long term (current) drug therapy; Z20.822 Contact with and (suspected) exposure to COVID-19
CPT/HCPCS: 36415; 51701; 51702; 70450; 70496; 70498; 70551; 71045; 74230; 80053; 80061; 80307; 83036; 83735; 84100; 84484; 85025; 85610; 85730; 87502; 93005; 93010; 93306; 96374; 96375; 96376; 99285-25; G0378; J0780; J1885; J7030; Q9967; U0002

== ENCOUNTER 2025-09-04 11:28 | Inpatient (IN) | payer OTHER ==
[~2025-09-04] VITALS: Ht 172.7 cm; Wt 113.2 kg
[~2025-09-04 11:28] MED LIST changes: +ADULT ASPIRIN R81 MG PO; +CARBAMAZEPINE200 MG PO; +CLOPIDOGREL75 MG PO; +MELATONIN3 MG PO; +SERTRALINE HCL100 MG PO
[2025-09-04] MEDS ORDERED: FENTANYL CITRATE-0.9 % NACL/PF 100 ML IV SCH (11:45)
[2025-09-04] MEDS ORDERED: SODIUM CHLORIDE 0.9% 1,000 ML IV ONE ×2 (11:45→12:15)
[2025-09-04] MEDS ORDERED: DAPTOmycin 500 MG/10 ML VIAL IV ONE (11:45)
[2025-09-04 11:47] LABS: MCH 26.1 PG (25.6-32.2); MCHC 30.6 g/dL (32.2-35.5); MCV 85.5 fL (79.4-94.8); RBC 5.05 M/uL (3.93-5.22)
[2025-09-04] MEDS ORDERED: KETAMINE HCL 500 MG/5 ML MDV ONE (11:54)
[2025-09-04 12:00] LABS: INR 1.73 (0.80-1.30); PROTIME 19.6 Sec (11.2-14.2)
[2025-09-04] MEDS ORDERED: PIPERACILLIN/TAZOBACTAM 4.5 GM in SODIUM CHLORIDE 0.9% 100 ML IV ONE (12:00)
[2025-09-04] MEDS ORDERED: NOREPINEPHRINE BITARTRATE 250 ML IV SCH (12:00)
[2025-09-04 12:04] LABS: BANDS, MANUAL DIFF 4; LYMPHOCYTES, MANUAL DIFF 60; MONOCYTES, MANUAL DIFF 6; NEUTROPHILS, MANUAL DIFF 30
[2025-09-04 12:11] LABS: BLOOD/HGB, URINE MODERATE (Negative); KETONE, URINE TRACE (Negative); LEUK ESTERASE, URINE MODERATE (negative); NITRITE, URINE NEGATIVE (negative)
[2025-09-04 12:11] LABS: LACTIC ACID, BLOOD 13.2 mmol/L (0.4-2.0)
[2025-09-04 12:14] LABS: AST (SGOT) 46.0 U/L (15-37); GLOMERULAR FILTRATION RATE,EST 16.0 mL/min (>60); PROTEIN, TOTAL 6.9 g/dL (6.4-8.2); UREA NITROGEN 61.0 mg/dL (7-18)
[2025-09-04 12:19] LABS: BACTERIA, URINE 3+ /hpf (negative); CASTS, URINE NONE SEEN \\lpf; CRYSTALS, URINE NONE SEEN (0-1+); EPITHELIAL CELLS, URINE SQUAMOUS 2+ /lpf (0-1+); REFLEX CULTURE, URINE No (No)
[2025-09-04 12:49] LABS: BASE EXCESS, BLOOD GAS -18.5 mmol/L (-2-2); HCO3, BLOOD GAS 13.5 mmol/L (22-26); O2 SATURATION, BLOOD GAS 96.1 % (95.0-100.0); PCO2, BLOOD GAS 58.2 mmHg (35-45); PH, BLOOD GAS 6.97 (7.35-7.45); PO2, BLOOD GAS 117 mmHg (80-100); TOTAL CO2, BLOOD GAS 15.3
[2025-09-04 12:50] LABS: OXYGEN RECEIVED, BLOOD GAS 100%
[2025-09-04 12:57] LABS: ALT (SGPT) 31.0 U/L (14-59)
[2025-09-04] MEDS ORDERED: VASOPRESSIN 20 UNITS in SODIUM CHLORIDE 0.9% 100 ML IV SCH (13:15)
[2025-09-04 13:27] LABS: LACTIC ACID, BLOOD 8.3 mmol/L (0.4-2.0)
[2025-09-04] MEDS ORDERED: KETAMINE HCL 500 MG/5 ML MDV IV ONE (13:45)
[2025-09-04] MEDS ORDERED: LORazepam 2 MG/ML VIAL IV PRN ×3 (15:30)
[2025-09-04] MEDS ORDERED: MORPHINE SULFATE 4 MG/ML VIAL IV PRN ×2 (15:30)
[2025-09-04] MEDS ORDERED: ATROPINE SULFATE 1% OPTH DROPS SL PRN (15:30)
[2025-09-04] MEDS ORDERED: ARTIFICIAL TEARS 15 ML BTL OU PRN (15:30)
[2025-09-04] MEDS ORDERED: ACETAMINOPHEN 650 MG SUPP PR PRN (15:30)
[2025-09-04] MEDS ORDERED: fentaNYL citrate 100 MCG/2 ML VIAL IV PRN ×3 (15:30)
[2025-09-04] MEDS ORDERED: MORPHINE SULFATE 10 MG/ML VIAL IV PRN (15:30)
[2025-09-04] MEDS ORDERED: SCOPOLAMINE 1 MG/3 DAYS PATCH 1 EACH TDSY TD SCH (16:00)
[2025-09-04 16:27] VITALS: BP 45/21
--- NOTE | 2025-09-04 16:40 | NUR ---
GOT REPORT FROM FEDERICO WARD IN THE ER.
--- NOTE | 2025-09-04 16:47 | NUR ---
UR CLINICAL REVIEW: [facility], MEETS INPT FOR ACUTE DIVERTICULITIS WITH PERFERORATION UNRESPONSIVE, TACHYCARDIC UP TO 135, INTUBATED, VASOPRESSORS PRIOR TO ADMISSION- DC'D. IV MEDICATIONS [facility] INPT 09/04/2025 @ 1532 ORDER MATCHES REG AUTH PENDING, WILL SEND CLINICALS FOR REVIEW IF REQUESTED. COMFORT MEASURES ONLY, UNABLE TO DC TO HOME IN CURRENT CONDITION. PRESSORS WERE NEEDED TO MAINTAIN BLOOD PRESSURES AND PATIENT INTUBATED. PLAN FOR END OF LIFE IN FACILITY.
--- NOTE | 2025-09-04 16:55 | NUR ---
PATIENT ARRIVED TO THE FLOOR WITH THIS RN, FEDERICO GARCIA AND RESPIRATORY THERAPY. BED BATH COMPLETE. EXTRA LINENS REMOVED. PATIENT CONNECTED TO THE HEAD PUMPER AT THIS TIME. PILLOWS PLACED TO HELP WITH REPOSITIONING. PATIENT FAMILY REMAIN IN THE WAITING ROOM AT THIS TIME.
--- NOTE | 2025-09-04 17:10 | NUR ---
FEDERICO GARCIA HAD CONVERSATION REGARDING PLAN OF CARE. ;PATIENT REPORTED WANTING TO EXTUBATE AT THIS TIME. THIS RN NOTIFIED AND RESPIRATORY THERAPY AT THIS TIME. PATIENT FAMILY REMAINS AT BEDSIDE AT THIS TIME.
--- NOTE | 2025-09-04 17:15 | NUR ---
RESPIRATORY THERAPY, THIS RN, AND AT BEDSIDE FOR EXTUBATION.
--- NOTE | 2025-09-04 17:25 | NUR ---
IN THE ROOM AT THIS TIME AND CALLED TIME OF AT 1723. THIS RN IN THE ROOM WITH . PATIENT FAMILY REMAINS AT BEDSIDE.
--- NOTE | 2025-09-04 17:35 | NUR ---
FENTANYL WASTED WITH FEDERICO GARCIA. NURSING SALVAGE ENGINEERING TECHNICIAN HAS BEEN NOTIFIED.
--- NOTE | 2025-09-04 17:48 | NUR ---
PATIENT WITH QUESTIONS REGARDING THE PLAN. RN UPDATED SPOUSE THAT THE FUR VAULT ATTENDANT HAS BEEN NOTIFIED AND WILL BE INFORMING THE HOME. PATIENT WITH NO FURTHER QUESTIONS OR CONCERS. RN STATED WE WOULD UPDATE HIM AND THE FAMILY WE GET AN UPDATE.
--- NOTE | 2025-09-04 18:49 | NUR ---
GREEN BUILDING ENERGY ENGINEER CALLED BY BOARD CATCHER AND INFORMED OF PT . UPON ARRIVAL, GREEN BUILDING ENERGY ENGINEER VISITED WITH PRESENT FAMILY, WHICH INCLUDED PT , PT DAUGHTER, AND FAMILY FRIEND. ALL PRESENT SEEMED IN GOOD SPIRITS AND ALTHOUGH SURPRISED AT THE SPEED OF DEMISE, ALL KNEW IT WAS THE EVENTUAL OUTCOME AND SEEMED AT PEACE. OFFERED PRAYER AND WORDS OF ENCOURAGEMENT. GREEN BUILDING ENERGY ENGINEER CONTACTED [facility] AT 1851 AND REQUESTED THEIR SERVICES, WILL UPDATE NOTE UPON ARRIVAL OF HOME AND DEPARTURE OF REMAINS.
[2025-09-05] MEDS ORDERED: KETAMINE in NS 50 MG/5 ML SYR IV ONE (13:45)
== END 2025-09-04 19:45 | DRG 951 ==
LOC: ED 11:28 → CCU 15:41
PROVIDERS: Emergency Medicine; ADMIT Family Medicine; ATTEND Family Medicine
PROC: 02H633Z Insertion of Infusion Device into Right Atrium, Percutaneous Approach (ICD-10-PCS; principal; 2025-09-04)
PROC: B548ZZA Ultrasonography of Superior Vena Cava, Guidance (ICD-10-PCS; 2025-09-04)
PROC: 3E03329 Introduction of Other Anti-infective into Peripheral Vein, Percutaneous Approach (ICD-10-PCS; 2025-09-04)
PROC: 3E033XZ Introduction of Vasopressor into Peripheral Vein, Percutaneous Approach (ICD-10-PCS; 2025-09-04)
PROC: 5A1935Z Respiratory Ventilation, Less than 24 Consecutive Hours (ICD-10-PCS; 2025-09-04)
PROC: 4A033R1 Measurement of Arterial Saturation, Peripheral, Percutaneous Approach (ICD-10-PCS; 2025-09-04)
PROC: 0T9B70Z Drainage of Bladder with Drainage Device, Via Natural or Artificial Opening (ICD-10-PCS; 2025-09-04)
DX: Z51.5 Encounter for palliative care (principal); A41.9 Sepsis, unspecified organism; R65.21 Severe sepsis with septic shock; E87.20 Acidosis, unspecified; K57.20 Diverticulitis of large intestine with perforation and abscess without bleeding; M84.58XA Pathological fracture in neoplastic disease, other specified site, initial encounter for fracture; Z68.41 Body mass index [BMI] 40.0-44.9, adult; C79.51 Secondary malignant neoplasm of bone; Z66 Do not resuscitate; I10 Essential (primary) hypertension; E03.9 Hypothyroidism, unspecified; M10.9 Gout, unspecified; G47.33 Obstructive sleep apnea (adult) (pediatric); D50.9 Iron deficiency anemia, unspecified; C50.912 Malignant neoplasm of unspecified site of left female breast; E66.01 Morbid (severe) obesity due to excess calories; G25.81 Restless legs syndrome; E11.9 Type 2 diabetes mellitus without complications; F39 Unspecified mood [affective] disorder; Z98.84 Bariatric surgery status; Z90.710 Acquired absence of both cervix and uterus; Z87.19 Personal history of other diseases of the digestive system; Z98.890 Other specified postprocedural states; Z90.49 Acquired absence of other specified parts of digestive tract; Z86.73 Personal history of transient ischemic attack (TIA), and cerebral infarction without residual deficits; Z86.14 Personal history of Methicillin resistant Staphylococcus aureus infection; Z89.422 Acquired absence of other left toe(s); Z98.891 History of uterine scar from previous surgery; Z86.16 Personal history of COVID-19; Z91.040 Latex allergy status; Z91.048 Other nonmedicinal substance allergy status; Z91.018 Allergy to other foods; Z91.013 Allergy to seafood; Z88.1 Allergy status to other antibiotic agents; Z88.8 Allergy status to other drugs, medicaments and biological substances; Z88.2 Allergy status to sulfonamides; Z88.5 Allergy status to narcotic agent; Z79.899 Other long term (current) drug therapy; Z79.890 Hormone replacement therapy; Z79.82 Long term (current) use of aspirin; Z87.440 Personal history of urinary (tract) infections
CPT/HCPCS: 31500; 36415; 36556; 36600; 51702; 70450; 71045; 71250; 74176; 80053; 81001; 82803; 83605; 83880; 84484; 85025; 85610; 85730; 96365; 96367; 96375; 99291; 99292; C1751; J0878; J2543; J2704; J3010; J3490; J7030